=== PATIENT | male | born 1980 | race African-American/Black ===

== ENCOUNTER 2023-04-13 10:39 | Inpatient (IN) | payer OTHER ==
[~2023-04-13] VITALS: Ht 177.8 cm; Wt 72.9 kg
[2023-04-13] MEDS ORDERED: diphenhdrAMINE HCL 50 MG/1 ML VL IM ONE (11:15)
[2023-04-13 11:45] LABS: Basophils # (auto) 0 10 ^3/uL (0-0.2); Basophils % (auto) 0.5 % (0.0-2.0); Eosinophils # (auto) 0 10 ^3/uL (0-0.8); Eosinophils % (auto) 0.5 % (0.0-7.0); Hematocrit 41.3 % (41.0-53.0); Hemoglobin 13.7 g/dL (13.5-17.5); Lymphocytes # (auto) 1.5 10 ^3/uL (0.4-5.4); Lymphocytes % (auto) 43.6 % (10.0-50.0); Mean Corpuscular Hemoglobin 28.3 pg (28.0-32.0); Mean Corpuscular Hgb Conc. 33.1 g/dL (32.0-36.0); Mean Corpuscular Volume 85.6 fL (80.0-100.0); Monocytes # (auto) 0.2 10 ^3/uL (0-1.3); Monocytes % (auto) 6.8 % (0.0-12.0); Neutrophils # (auto) 1.7 10 ^3/uL (1.6-8.6); Neutrophils % (auto) 48.6 % (37.0-80.0); Nucleated Red Blood Cells % 0.2 %; Red Blood Cells 4.83 10^6/uL (4.5-5.90); Red Cell Distribution Width 14.5 % (11.8-14.3); White Blood Cell 3.5 10^3/uL (4.4-10.8)
[2023-04-13 11:57] LABS: Alanine Aminotransferase 40 U/L (7-40); Albumin 4.4 g/dL (3.2-4.8); Alkaline Phosphatase 56 U/L (46-116); Anion Gap 7 (5-15); Aspartate Aminotransferase 63 U/L (13-40); BUN/Creatinine Ratio 5.6 (10.0-20.0); Blood Urea Nitrogen 7 mg/dL (9-23); Calcium 9.3 mg/dL (8.7-10.4); Carbon Dioxide 25 mmol/L (20-30); Chloride 108 mmol/L (98-107); Glucose 100 mg/dL (74-106); Magnesium 2.1 mg/dL (1.6-2.6); Potassium 3.9 mmol/L (3.5-5.1); Sodium 140 mmol/L (136-145)
[2023-04-13 11:58] LABS: Bilirubin, Total 0.5 mg/dL (0.2-1.0); Total Protein 7.1 g/dL (5.7-8.2)
[2023-04-13 12:09] LABS: Creatine Kinase IFCC 2574 U/L (46-171)
[2023-04-13 12:11] LABS: CRP High Sensitivity 0.08 mg/dL (<1.0)
[2023-04-13 12:29] LABS: Erythrocyte Sedimentation Rate 2 mm/hr (0-20)
[2023-04-13] MEDS ORDERED: SODIUM CHLORIDE 0.9% 3,000 ML IV ONE (13:15)
[2023-04-13 14:18] LABS: Urine Bacteria NONE SEEN /hpf (None Seen); Urine Blood Negative /uL (Negative); Urine Clarity Clear (Clear); Urine Color Colorless (Yellow); Urine Protein, UAD Negative (Negative); Urine Specific Gravity 1.005 (1.001-1.035); Urine Urobilinogen Normal (Negative); Urine WBC 1 /hpf (0 - 3)
[2023-04-13 14:26] LABS: Amphetamine Screen, Urine Neg (NEGATIVE); Barbiturate Scree,Urine Neg (NEGATIVE); Benzodiazephine Screen, Urine Neg (NEGATIVE); Cannabinoid Screen, Urine Neg (NEGATIVE); Cocaine Screen, Urine Neg (NEGATIVE); Opiate Scree,Urine Neg (NEGATIVE); Phencyclidine Screen, Urine Neg (NEGATIVE)
[2023-04-13] MEDS ORDERED: NITROGLYCERIN 0.4 MG SL TAB SL PRN (15:00)
[2023-04-13] MEDS ORDERED: MORPHINE SULFATE INJ 2 MG/ml SYRG IV PRN (15:00)
[2023-04-13] MEDS ORDERED: ELVI1TAB5 PO (15:22)
[2023-04-13] MEDS ORDERED: CHOL20007 PO (15:22)
[2023-04-13] MEDS: D5W/SOD CHL 0.45%/KCL 20MEQ 1,000 ML IV SCH ×2 (15:56→22:35)
[2023-04-13 18:32] VITALS: PULSE 64; RESP 19; O2SAT 98
[2023-04-13 20:12] VITALS: PULSE 67; RESP 17; O2SAT 97
[2023-04-13 22:04] VITALS: BP_SYST 120; BP_SYST 130; BP_DIAS 77; PULSE 60; RESP 18; RESP 20; TEMP 98; O2SAT 97
[2023-04-14] MEDS: D5W/SOD CHL 0.45%/KCL 20MEQ 1,000 ML IV SCH ×6 (04:20→23:56)
[2023-04-14 05:17] VITALS: BP 112/66; PULSE 70; RESP 20; TEMP 98.6; O2SAT 91
[2023-04-14 06:22] LABS: Hematocrit 39.1 % (41.0-53.0); Hemoglobin 12.9 g/dL (13.5-17.5); Mean Corpuscular Hemoglobin 28.1 pg (28.0-32.0); Mean Corpuscular Volume 85.3 fL (80.0-100.0); Red Blood Cells 4.59 10^6/uL (4.5-5.90); Red Cell Distribution Width 14.2 % (11.8-14.3); White Blood Cell 3.3 10^3/uL (4.4-10.8)
[2023-04-14 06:48] LABS: Alanine Aminotransferase 33 U/L (7-40); Albumin 3.9 g/dL (3.2-4.8); Alkaline Phosphatase 48 U/L (46-116); Anion Gap 4 (5-15); Aspartate Aminotransferase 43 U/L (13-40); BUN/Creatinine Ratio 4.5 (10.0-20.0); Bilirubin, Total 0.5 mg/dL (0.2-1.0); Blood Urea Nitrogen 6 mg/dL (9-23); Calcium 9.1 mg/dL (8.7-10.4); Carbon Dioxide 28 mmol/L (20-30); Chloride 109 mmol/L (98-107); Creatine Kinase IFCC 1608 U/L (46-171); Glucose 86 mg/dL (74-106); Potassium 4.4 mmol/L (3.5-5.1); Sodium 141 mmol/L (136-145); Total Protein 6.3 g/dL (5.7-8.2)
[2023-04-14 07:51] LABS: Band Neutrophils % (manual) 0; Basophils % (manual) 0 (0.0-2.0); Blast Cells 0; Metamyelocytes % 0; Myelocytes % 0; Promyelocytes % 0; Reactive Lymphocytes 0
[2023-04-14 08:00] VITALS: BP 106/70; PULSE 58; PULSE 78; RESP 18; RESP 20; O2SAT 100; O2SAT 96
[2023-04-14 08:29] LABS: Eosinophils % (manual) 1 (0-7); Lymphocytes % (manual) 61 (10.0-50.0); Monocytes % (manual) 7 (0-12); Platelet Estimate Adequate
[2023-04-14] MEDS ORDERED: PATIENTS OWN MEDICATION (Cholecalciferol (Vitamin D3) 1 TAB) PO SCH (10:00)
[2023-04-14] MEDS ORDERED: ELVITEGRAVIR COBICISTAT EMTRIC PO SCH (10:00)
[2023-04-14] MEDS ORDERED: GENVOYA PO SCH (10:05)
[2023-04-14] MEDS: CHOLECALCIFEROL (VITD3) 2,000 UNIT CAP/TAB PO SCH (10:24)
[2023-04-14 12:00] VITALS: BP 112/69; PULSE 57; RESP 18; TEMP 98; O2SAT 100
[2023-04-14] MEDS: PANTOPRAZOLE 40 MG TAB PO SCH (13:01)
[2023-04-14] MEDS: HYDROcodone-ACET 10/325MG TAB PO PRN ×2 (13:03→19:46)
[2023-04-14] MEDS: ENOXAPARIN SOD 40 MG/0.4 ML SYRINGE SC SCH (13:04)
[2023-04-14 16:00] VITALS: BP 105/70; PULSE 60; RESP 16; TEMP 98; O2SAT 99
[2023-04-14] MEDS: GENVOYA PO SCH (19:47)
[2023-04-14 20:00] VITALS: PULSE 60; RESP 18; O2SAT 99
[2023-04-14 22:00] VITALS: BP 101/69; PULSE 72; RESP 18; TEMP 98; O2SAT 100
[2023-04-15] VITALS (7 sets, daily range): BP systolic 103–117; BP diastolic 63–74; PULSE 53–67; RESP 17–18; TEMP 97.6–98; O2SAT 97–100
[2023-04-15] MEDS: D5W/SOD CHL 0.45%/KCL 20MEQ 1,000 ML IV SCH ×4 (05:44→23:15)
[2023-04-15 06:54] LABS: Alanine Aminotransferase 28 U/L (7-40); Albumin 3.8 g/dL (3.2-4.8); Alkaline Phosphatase 46 U/L (46-116); Anion Gap 2 (5-15); Aspartate Aminotransferase 27 U/L (13-40); BUN/Creatinine Ratio 5.3 (10.0-20.0); Blood Urea Nitrogen 7 mg/dL (9-23); Calcium 8.9 mg/dL (8.7-10.4); Carbon Dioxide 29 mmol/L (20-30); Chloride 108 mmol/L (98-107); Creatine Kinase IFCC 827 U/L (46-171); Glucose 98 mg/dL (74-106); Potassium 4.5 mmol/L (3.5-5.1); Sodium 139 mmol/L (136-145)
[2023-04-15 06:55] LABS: Bilirubin, Total 0.3 mg/dL (0.2-1.0); Total Protein 6.3 g/dL (5.7-8.2)
[2023-04-15] MEDS: HYDROcodone-ACET 10/325MG TAB PO PRN ×2 (08:10→21:31)
[2023-04-15] MEDS: PANTOPRAZOLE 40 MG TAB PO SCH (10:00)
[2023-04-15] MEDS: CHOLECALCIFEROL (VITD3) 2,000 UNIT CAP/TAB PO SCH (10:15)
[2023-04-15] MEDS: ENOXAPARIN SOD 40 MG/0.4 ML SYRINGE SC SCH (10:15)
[2023-04-15] MEDS: GENVOYA PO SCH (21:30)
[2023-04-16] VITALS (7 sets, daily range): BP systolic 107–120; BP diastolic 49–70; PULSE 50–75; RESP 17–18; TEMP 97.6–97.9; O2SAT 93–100
[2023-04-16] MEDS: D5W/SOD CHL 0.45%/KCL 20MEQ 1,000 ML IV SCH ×3 (04:07→15:48)
[2023-04-16 05:59] LABS: Alanine Aminotransferase 25 U/L (7-40); Albumin 3.8 g/dL (3.2-4.8); Alkaline Phosphatase 47 U/L (46-116); Anion Gap 3 (5-15); Aspartate Aminotransferase 18 U/L (13-40); BUN/Creatinine Ratio 7.7 (10.0-20.0); Bilirubin, Total 0.3 mg/dL (0.2-1.0); Blood Urea Nitrogen 11 mg/dL (9-23); Calcium 9.3 mg/dL (8.7-10.4); Carbon Dioxide 29 mmol/L (20-30); Chloride 107 mmol/L (98-107); Creatine Kinase IFCC 426 U/L (46-171); Glucose 82 mg/dL (74-106); Potassium 4.7 mmol/L (3.5-5.1); Sodium 139 mmol/L (136-145); Total Protein 6.3 g/dL (5.7-8.2)
[2023-04-16] MEDS: HYDROcodone-ACET 10/325MG TAB PO PRN ×2 (07:55→21:15)
[2023-04-16] MEDS: CHOLECALCIFEROL (VITD3) 2,000 UNIT CAP/TAB PO SCH (10:56)
[2023-04-16] MEDS: ENOXAPARIN SOD 40 MG/0.4 ML SYRINGE SC SCH (10:56)
[2023-04-16] MEDS: PANTOPRAZOLE 40 MG TAB PO SCH (10:57)
[2023-04-16] MEDS: GENVOYA PO SCH (21:08)
[2023-04-17] VITALS (7 sets, daily range): BP systolic 100–112; BP diastolic 57–66; PULSE 61–83; RESP 18–61; TEMP 98.1; O2SAT 21–100
[2023-04-17] MEDS: D5W/SOD CHL 0.45%/KCL 20MEQ 1,000 ML IV SCH ×5 (00:15→15:15)
[2023-04-17] MEDS: HYDROcodone-ACET 10/325MG TAB PO PRN ×2 (05:19→10:00)
[2023-04-17 06:31] LABS: Alanine Aminotransferase 22 U/L (7-40); Alkaline Phosphatase 44 U/L (46-116); Anion Gap 3 (5-15); Aspartate Aminotransferase 20 U/L (13-40); BUN/Creatinine Ratio 6.4 (10.0-20.0); Blood Urea Nitrogen 9 mg/dL (9-23); Calcium 9.4 mg/dL (8.5-10.1); Carbon Dioxide 31 mmol/L (20-30); Chloride 105 mmol/L (98-107); Glucose 92 mg/dL (74-106); Potassium 4.5 mmol/L (3.5-5.1); Sodium 139 mmol/L (136-145)
[2023-04-17 06:32] LABS: Bilirubin, Total 0.4 mg/dL (0.2-1.0); Creatine Kinase IFCC 397 U/L (46-171); Total Protein 6.4 g/dL (5.7-8.2)
[2023-04-17] MEDS: ENOXAPARIN SOD 40 MG/0.4 ML SYRINGE SC SCH (10:00)
[2023-04-17] MEDS: CHOLECALCIFEROL (VITD3) 2,000 UNIT CAP/TAB PO SCH (10:00)
[2023-04-17] MEDS: PANTOPRAZOLE 40 MG TAB PO SCH (10:00)
== END 2023-04-17 18:18 | DRG 558 ==
LOC: ER 10:39 → EDBD 10:39 → EEVIPCON 10:39 → OVERFLOW 15:13 → EAST 20:41
PROVIDERS: ADMIT Internal Medicine; ATTEND Internal Medicine
DX: M62.82 Rhabdomyolysis (principal); G24.9 Dystonia, unspecified; G25.3 Myoclonus; Z21 Asymptomatic human immunodeficiency virus [HIV] infection status
CPT/HCPCS: 36415; 70551; 80053; 80307; 81001; 82550; 83735; 85007; 85025; 85027; 85652; 86141; 87081; 96360; G0378